=== PATIENT | female | born 1970 | race Caucasian/White ===

== ENCOUNTER 2018-04-01 20:00 | Emergency (ER) | payer BC ==
[2018-04-02 03:38] VITALS: BP 129/77
--- NOTE | 2018-04-02 03:38 | Emergency Department Report ---
- General Chief complaint: Skin/Abscess/Foreign Body Stated complaint: PAIN/BUMP ON PRIVATE AREA Time Seen by Provider: 04/02/18 02:41 Source: patient Mode of arrival: Ambulatory Limitations: No Limitations - History of Present Illness Initial comments: pt is a 48 y/o female with hx of dm II, who presents for left labial abscess, x 3 days there is no fever or chills , no drainage no vaginal discharge, there is no exacerbating or relieving factors. MD complaint: abscess/boil Onset/Timin -: days(s) Tetanus Up to Date: no Severity: moderate Severity scale (0 -10): 5 Quality: sharp Consistency: constant Improves with: none Worsens with: none Context: none Associated symptoms: itching Treatments Prior to Arrival: none - Related Data Previous Rx's Medication Instructions Recorded Last Taken Type Cephalexin [Keflex] 500 mg PO TID 10 Days #30 capsule 04/02/18 Unknown Rx traMADol [Ultram] 50 mg PO Q6HR PRN #12 tablet 04/02/18 Unknown Rx Allergies Allergy/AdvReac Type Severity Reaction Status Date / Time No Known Allergies Allergy Unverified 04/01/18 20:44 Abscess Boil HPI - HPI Chief Complaint: Skin/Abscess/Foreign Body Stated Complaint: PAIN/BUMP ON PRIVATE AREA Time Seen by Provider: 04/02/18 02:41 Home Medications: Previous Rx's Medication Instructions Recorded Last Taken Type Cephalexin [Keflex] 500 mg PO TID 10 Days #30 capsule 04/02/18 Unknown Rx traMADol [Ultram] 50 mg PO Q6HR PRN #12 tablet 04/02/18 Unknown Rx Allergies/Adverse Reactions: Allergies Allergy/AdvReac Type Severity Reaction Status Date / Time No Known Allergies Allergy Unverified 04/01/18 20:44 ED Review of Systems ROS: Stated complaint: PAIN/BUMP ON PRIVATE AREA Other details as noted in HPI Constitutional: denies: chills, fever Eyes: denies: eye pain, eye discharge, vision change ENT: denies: ear pain, throat pain Respiratory: denies: cough, shortness of breath, wheezing Cardiovascular: denies: chest pain, palpitations Endocrine: no symptoms reported Gastrointestinal: denies: abdominal pain, nausea, diarrhea Genitourinary: other (abscess left labia ). denies: urgency, dysuria, frequency, hematuria, discharge, dyspareunia Musculoskeletal: denies: back pain, joint swelling, arthralgia Skin: denies: rash, lesions Neurological: denies: headache, weakness, paresthesias Psychiatric: denies: anxiety, depression Hematological/Lymphatic: denies: easy bleeding, easy bruising ED Past Medical Hx - Past Medical History Hx Diabetes: Yes - Surgical History Additional Surgical History: - Social History Smoking Status: Never Smoker Substance Use Type: Alcohol - Medications Home Medications: Home Medications Medication Instructions Recorded Confirmed Last Taken Type Cephalexin [Keflex] 500 mg PO TID 10 Days #30 capsule 04/02/18 Unknown Rx traMADol [Ultram] 50 mg PO Q6HR PRN #12 tablet 04/02/18 Unknown Rx ED Physical Exam - General Limitations: No Limitations General appearance: alert, in no apparent distress - Head Head exam: Present: atraumatic, normocephalic - Eye Eye exam: Present: normal appearance, PERRL, EOMI - ENT ENT exam: Present: normal orophraynx, mucous membranes moist - Neck Neck exam: Present: normal inspection, full ROM. Absent: tenderness, lymphadenopathy, thyromegaly - Respiratory Respiratory exam: Present: normal lung sounds bilaterally. Absent: respiratory distress, wheezes, stridor, chest wall tenderness - Cardiovascular Cardiovascular Exam: Present: regular rate, normal rhythm, normal heart sounds. Absent: systolic murmur, diastolic murmur, rubs, gallop - GI/Abdominal GI/Abdominal exam: Present: soft, normal bowel sounds - Rectal Rectal exam: Present: deferred - External exam: Present: erythema, swelling (left labia ), lesions (left labial abscess ). Absent: lacerations, ecchymosis, bleeding - Extremities Exam Extremities exam: Present: normal inspection, full ROM. Absent: tenderness - Back Exam Back exam: Present: normal inspection, full ROM. Absent: tenderness, CVA tenderness (R), CVA tenderness (L) - Neurological Exam Neurological exam: Present: alert, oriented X3, CN II-XII intact, normal gait - Psychiatric Psychiatric exam: Present: normal affect, normal mood - Skin Skin exam: Present: warm, dry, intact, normal color. Absent: rash ED Course Vital Signs 04/01/18 04/01/18 20:06 20:41 Temperature 98.3 F 98.3 F Pulse Rate 95 H 86 Respiratory 18 18 Rate Blood Pressure 126/77 126/77 O2 Sat by Pulse 98 98 Oximetry - I & D Left Vagina Type of Procedure: Simple (left labial abscess) Site: 1x1 cm Blade Size: 11 I & D Procedure: betadine prep, sterile dressing applied Progress: left labial abscess 1x1 cm fluctuant painful to touch no fever no drainage, cleaned with betadine solution, anesthesia with 1% lidocaine plain x 1 cc inc ision with 18g needle and synringe maual aspirated 3 cc purulent dischargre irrigated wtih 10 cc sterile saline steril sanitary napkin applied pt given wound care instructions verbalized agreement and understanding of same. all bleeding is controlled pt tolerated procedure with minimal distress. ED Medical Decision Making - Lab Data Labs 04/01/18 20:53 POC Glucose 221 H - Medical Decision Making labial abscess , see procedure noted all bleeding controlled pt given wound care instructions pt verbalized agreement and understanding of same pt for dc to home in stable condition at this time. Critical care attestation.: If time is entered above; I have spent that time in minutes in the direct care of this critically ill patient, excluding procedure time. ED Disposition Clinical Impression: Labial abscess Disposition: DC-01 TO HOME OR SELFCARE Is pt being admited?: No Does the pt Need Aspirin: No Condition: Stable Instructions: Abscess (ED) Prescriptions: Cephalexin [Keflex] 500 mg PO TID 10 Days #30 capsule traMADol [Ultram] 50 mg PO Q6HR PRN #12 tablet PRN Reason: Pain Referrals: JOSE BILLINGS MD [Primary Care Provider] - 3-5 Days Forms: Work/School Release Form(ED) Time of Disposition: 03:31
== END 2018-04-02 03:00 | disposition home or self-care (01) ==
LOC: ED 20:00
DX: N76.4 Abscess of vulva (principal); E11.9 Type 2 diabetes mellitus without complications
CPT/HCPCS: 82962